=== PATIENT | female | born 1940 | race Caucasian/White ===

== ENCOUNTER 2024-12-07 15:35 | Inpatient (IN) | payer MEDICARE, MEDICAID ==
[~2024-12-07] VITALS: Ht 160 cm; Wt 54.5 kg
[2024-12-07] MEDS ORDERED: ESCI-8 PO (16:28)
[2024-12-07] MEDS ORDERED: LISI-894 PO (16:28)
[2024-12-07] MEDS ORDERED: MELA5TAB40 PO (16:28)
[2024-12-07] MEDS ORDERED: LORA10TA7 PO (16:28)
[2024-12-07] MEDS ORDERED: SENN-376 PO (16:28)
[2024-12-07 16:39] LABS: BASOPHILS % (AUTO) 1.2 % (0.0-2.0); EOSINOPHILS % (AUTO) 3.4 % (1.0-6.0); HEMATOCRIT 40.1 % (36-46); HEMOGLOBIN 13.3 g/dL (12.0-16.0); LYMPHOCYTES # (AUTO) 0.7 K/uL (1.0-4.8); LYMPHOCYTES % (AUTO) 9.8 % (22.0-44.0); MEAN CORPUSCULAR HEMOGLOBIN 29.7 pg (26.0-34.0); MEAN CORPUSCULAR HGB CONC 33.1 G/dL (31.0-37.0); MEAN CORPUSCULAR VOLUME 90 fL (80-100); MONOCYTES # (AUTO) 0.4 K/uL (0.1-1.0); MONOCYTES % (AUTO) 6.1 % (2.0-9.0); NEUTROPHILS # (AUTO) 5.8 K/uL (1.8-7.7); NEUTROPHILS % (AUTO) 79.5 % (40.0-70.0); PLATELET COUNT (AUTO) 152 K/uL (150-450); RED BLOOD CELL COUNT(AUTO) 4.47 MIL/uL (4.00-5.20); RED CELL DISTRIBUTION WIDTH 13.5 % (11.5-14.5); WHITE BLOOD COUNT (AUTO) 7.3 K/uL (4.5-11.0)
[2024-12-07 16:47] LABS: CALCIUM, TOTAL 8.9 mg/dL (8.8-10.5); CREATININE 1.05 mg/dL (0.60-1.30); POTASSIUM 3.6 mmol/L (3.5-5.1)
[2024-12-07] MEDS ORDERED: OLANZapine 5 MG RAPDIS TABLET PO PRN (17:30)
[2024-12-07] MEDS ORDERED: ZOLPIDEM TARTRATE 10 MG TABLET PO PRN (17:30)
[2024-12-07] MEDS: LORazepam 1 MG TABLET PO PRN (18:07)
[2024-12-07] MEDS: NICOTINE POLACRILEX 4 MG GUM CHEW ONE (18:08)
[2024-12-07 18:50] LABS: COVID AG,FIA SOURCE NASAL SWAB
[2024-12-07 19:25] LABS: SARS-COV2 (COVID) ANTIGEN,FIA Negative (Negative)
[2024-12-08 00:11] VITALS: O2SAT 95
[2024-12-08 04:54] VITALS: BP 125/65; PULSE 57; RESP 16; TEMP 97.7; O2SAT 96
[2024-12-08 08:41] VITALS: BP 127/67; PULSE 60; RESP 18; TEMP 97.2; O2SAT 95
[2024-12-08] MEDS ORDERED: MELATONIN 5 MG TABLET PO PRN (14:15)
[2024-12-08] MEDS: NICOTINE 14 MG/24 HOUR PATCH TD SCH (15:51)
[2024-12-08 21:47] VITALS: BP 136/56; PULSE 53; RESP 16; TEMP 97.7; O2SAT 96
[2024-12-09] MEDS: ESCITALOPRAM OXALATE 10 MG TABLET PO SCH (08:37)
[2024-12-09] MEDS: FAMOTIDINE 20 MG TABLET PO SCH (08:37)
[2024-12-09] MEDS: AmLODIPine BESYLATE 2.5 MG TABLET PO SCH (08:37)
[2024-12-09] MEDS: ATORVASTATIN CALCIUM 20 MG TABLET PO SCH (08:37)
[2024-12-09 08:45] VITALS: BP 152/68; PULSE 65; RESP 17; TEMP 97.5; O2SAT 96
[2024-12-09 22:26] VITALS: BP 153/73; PULSE 65; RESP 18; TEMP 98; O2SAT 100
[2024-12-10 07:20] LABS: CHOL/HDL RATIO 2.4 (3.9-5.7)
[2024-12-10 10:24] VITALS: BP 111/63; PULSE 70; RESP 17; TEMP 98.2; O2SAT 96
[2024-12-10] MEDS ORDERED: ESCI-8 PO (16:08)
[2024-12-10] MEDS ORDERED: MELA5TAB40 PO (16:08)
[2024-12-10 21:15] VITALS: BP 127/58; PULSE 96; RESP 18; TEMP 97.6; O2SAT 98
[2024-12-11 09:37] VITALS: BP 114/56; PULSE 93; RESP 18; TEMP 98; O2SAT 95
== END 2024-12-11 18:20 | DRG 885 ==
LOC: EMS 15:35 → 3EX 12-08 02:48 → UNDOADMIN 12-08 02:48
PROVIDERS: ADMIT Psychiatry & Neurology Child & Adolescent Psychiatry; ATTEND Psychiatry & Neurology Child & Adolescent Psychiatry
PROC: GZ58ZZZ Individual Psychotherapy, Cognitive-Behavioral (ICD-10-PCS; principal; 2024-12-09)
PROC: GZ56ZZZ Individual Psychotherapy, Supportive (ICD-10-PCS; 2024-12-09)
DX: F33.9 Major depressive disorder, recurrent, unspecified (principal); F03.918 Unspecified dementia, unspecified severity, with other behavioral disturbance; F03.94 Unspecified dementia, unspecified severity, with anxiety; R45.851 Suicidal ideations; E78.00 Pure hypercholesterolemia, unspecified; G47.00 Insomnia, unspecified; Z20.822 Contact with and (suspected) exposure to COVID-19; G89.29 Other chronic pain; I10 Essential (primary) hypertension; I73.9 Peripheral vascular disease, unspecified; J30.9 Allergic rhinitis, unspecified; F17.210 Nicotine dependence, cigarettes, uncomplicated; K21.9 Gastro-esophageal reflux disease without esophagitis; Z86.73 Personal history of transient ischemic attack (TIA), and cerebral infarction without residual deficits; Z79.899 Other long term (current) drug therapy
CPT/HCPCS: 80048; 80061; 83036; 85025; 87081; 99285; G0378; G0480